=== PATIENT | female | born 1995 | race Caucasian/White ===

== ENCOUNTER 2018-06-01 14:12 | Emergency (ER) | payer SELFPAY ==
--- NOTE | 2018-06-01 16:34 | ED ---
Upper Extremity Pain - HPI Summary HPI Summary: Pt is a 22 y/o F presenting to the ED with a chief complaint of R shoulder pain. She was carrying a tripod and a sand bag, and when she put it down she heard a pop. She thinks it may be dislocated, but is not sure. She c/o decreased ROM, and arthralgia. She denies fevers. - History of Current Complaint Chief Complaint: EDExtremityUpper Stated Complaint: HAS EDS/DISLOCATED RIGHT SHOULDER PER PT Time Seen by Provider: 06/01/18 16:20 Hx Obtained From: Patient Mechanism Of Injury: Unknown Onset/Duration: Started Hours Ago, Still Present Timing: Constant, Lasting Hours Severity Initially: Moderate Severity Currently: Moderate Pain Location: Shoulder - right Character: Aching Aggravating Factor(s): Movement Alleviating Factor(s): Nothing Associated Signs & Symptoms: Negative: Fever - Allergies/Home Medications Allergies/Adverse Reactions: Allergies Allergy/AdvReac Type Severity Reaction Status Date / Time etomidate Allergy Hives Verified 06/01/18 14:19 ketamine Allergy Altered Verified 06/01/18 14:19 Mental Status PMH/Surg Hx/FS Hx/Imm Hx Previously Healthy: Yes Endocrine/Hematology History: Denies: Hx Diabetes Cardiovascular History: Denies: Hx Hypertension Infectious Disease History: No Infectious Disease History: Denies: Traveled Outside the [place] in Last 30 Days - Family History Known Family History: Negative: Renal Disease - Social History Occupation: Student Hx Substance Use: No Substance Use Type: Reports: None Hx Tobacco Use: No Smoking Status (MU): Never Smoked Tobacco Review of Systems Negative: Fever Positive: Myalgia, Decreased ROM All Other Systems Reviewed And Are Negative: Yes Physical Exam - Summary Physical Exam Summary: Appearance: The patient is well-nourished in no acute distress and in no acute pain. Skin: The skin is warm and dry and skin color reflects adequate perfusion. HEENT: The head is normocephalic and atraumatic. The pupils are equal and reactive. The conjunctivae are clear and without drainage. Nares are patent and without drainage. Mouth reveals moist mucous membranes and the throat is without erythema and exudate. The external ears are intact. The ear canals are patent and without drainage. The tympanic membranes are intact. Neck: The neck is supple with full range of motion and non-tender. There are no carotid bruits. There is no neck vein distension. Respiratory: Chest is non-tender. Lungs are clear to auscultation and breath sounds are symmetrical and equal. Cardiovascular: Heart is regular rate and rhythm. There is no murmur or rub auscultated. There is no peripheral edema and pulses are symmetrical and equal. Abdomen: The abdomen is soft and non-tender. There are normal bowel sounds heard in all four quadrants and there is no organomegaly palpated. Musculoskeletal: Tenderness in the rhomboid area, neurovascular and motor exam are intact. Extremities are non-tender with full range of motion. There is good capillary refill. There is no peripheral edema or calf tenderness elicited. Neurological: Patient is alert and oriented to person, place and time. The patient has symmetrical motor strength in all four extremities. Cranial nerves are grossly intact. Deep tendon reflexes are symmetrical and equal in all four extremities. Psychiatric: The patient has an appropriate affect and does not exhibit any anxiety or depression. Triage Information Reviewed: Yes Vital Signs On Initial Exam: Initial Vitals Temp Pulse Resp BP Pulse Ox 98.4 F 90 20 130/89 95 06/01/18 14:15 06/01/18 14:15 06/01/18 14:15 06/01/18 14:15 06/01/18 14:15 Vital Signs Reviewed: Yes Diagnostics - Vital Signs Vital Signs Temp Pulse Resp BP Pulse Ox 06/01/18 14:15 98.4 F 90 20 130/89 95 - Laboratory Lab Statement: Any lab studies that have been ordered have been reviewed, and results considered in the medical decision making process. - Radiology Shoulder XR Radiology Interpretation Completed By: Radiologist Summary of Radiographic Findings: No acute osseous injury. ED physician has reviewed this report. Course/Dx - Course Course Of Treatment: Ms. Hernandez presented just concerned that she had dislocated her arm. She was lifting something heavy and got sudden pain. 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 Her exam revealed some tenderness in the rhomboid area on the right and over the deltoid there was no deformity. X-ray was negative and she was relieved. She is placed in a shoulder immobilizer recommended follow-up and rest. - Diagnoses Provider Diagnoses: Right shoulder pain Discharge - Sign-Out/Discharge Documenting (check all that apply): Patient Departure Patient Received Moderate/Deep Sedation with Procedure: No - Discharge Plan Condition: Stable Disposition: HOME Referrals: [facility] [Outside] Additional Instructions: Take ibuprofen as needed for your pain, and make use of your shoulder immobilizer. Follow up with [facility] in 2-3 days. Return to the ED with any new or worsening symptoms. - Billing Disposition and Condition Condition: STABLE Disposition: Home - Attestation Statements Document Initiated by Scribe: Yes Documenting Scribe: Nicole Mccoy Provider For Whom Surinder is Documenting (Include Credential): Tyron Madrigal MD. Scribe Attestation: Nicole Meyer, xeniaed for Tyron Madrigal MD. on 06/01/18 at 1827. Scribe Documentation Reviewed: Yes Provider Attestation: The documentation as recorded by the Nicole soni accurately reflects the service I personally performed and the decisions made by Tyron rey MD. Status of Scribe Document: Viewed
[2018-06-01 16:40] VITALS: BP 126/73
== END 2018-06-01 16:39 | disposition home or self-care (01) ==
LOC: ED 14:12
DX: Z88.8 Allergy status to other drugs, medicaments and biological substances (principal); M25.511 Pain in right shoulder
CPT/HCPCS: 99282